=== PATIENT | male | born 1960 | race Caucasian/White ===

== ENCOUNTER 2025-03-01 03:10 | Emergency (ER) | payer OTHER ==
[~2025-03-01] VITALS: Ht 175.3 cm; Wt 92.9 kg
[2025-03-01] MEDS: KETOROLAC 30 MG/ML 1 ML VIAL IV ONE (04:46)
[2025-03-01 05:10] LABS: BASO # 0.0 10^3/uL (0.0-0.2); BASO % 0.3 % (0.0-1.0); EOS # 0.2 10^3/uL (0.0-0.5); EOS % 5.2 % (0.0-3.0); LYMPH # 0.5 10^3/uL (1.5-5.0); LYMPH % 14.8 % (24.0-44.0); MONO # 0.4 10^3/uL (0.0-0.8); MONO % 12.5 % (2.0-8.0); NEUTROPHILS # 2.3 10^3/uL (1.5-8.5); NEUTROPHILS % 66.9 % (36.0-66.0)
[2025-03-01 05:30] LABS: CK-MB VALUE MASS < 1.0 NG/ML (<3.6)
[2025-03-01 05:32] LABS: CALCIUM LEVEL 7.8 MG/DL (8.3-10.6); CARBON DIOXIDE LEVEL 21 MMOL/L (20-31); CHLORIDE LEVEL 109 MMOL/L (98-107); CPK CREATINE PHOSPHOKINASE 58 U/L (46-171); CREATININE FOR GFR 0.53 MG/DL (0.70-1.30); GLOMERULAR FILTRATION RATE > 90.0 (>49); POTASSIUM SERUM 4.1 MMOL/L (3.5-5.1); SODIUM LEVEL 141 MMOL/L (136-145)
[2025-03-01 05:40] LABS: PLATELET COUNT, AUTOMATED 45 10^3/uL (150-450)
[2025-03-01] MEDS ORDERED: ISOVUE-370 76% 100 ML VIAL As Ordered ONE (06:15)
[2025-03-01] MEDS ORDERED: LEVO75TAB PO (07:43)
[2025-03-01 07:54] VITALS: BP 128/76; TEMP 98.2; O2SAT 94
== END 2025-03-01 08:38 | disposition home or self-care (01) ==
LOC: EDBD 03:10 → M ED 03:10
DX: D69.6 Thrombocytopenia, unspecified (principal); M94.0 Chondrocostal junction syndrome [Tietze]; J18.9 Pneumonia, unspecified organism; K70.9 Alcoholic liver disease, unspecified; K76.6 Portal hypertension; R16.1 Splenomegaly, not elsewhere classified; J98.11 Atelectasis
CPT/HCPCS: 71046; 71260; 80048; 82550; 82553; 84484; 85025; 85049; 85055; 87486; 87581; 87633; 87798; 93005; 96374; 96375; 99284; J1885; J3360; Q9967